=== PATIENT | male | born 1970 | race Caucasian/White ===

== ENCOUNTER 2018-04-22 13:36 | Emergency (ER) | payer OTHER ==
[~2018-04-22] VITALS: Ht 193 cm; Wt 160.0 kg
[~2018-04-22 13:36] MED LIST: COU7.5T PO; ENOX120D SQ; HYDR-565 PO; LOP25T PO; ONDA8TAB9 PO
[2018-04-22 13:58] LABS: BASOPHILS % (AUTO) 0.5 % (0-1); EOSINOPHILS # (AUTO) 0.3 X10'3 (0-0.9); EOSINOPHILS % (AUTO) 4.6 % (0-6); HEMATOCRIT 52.7 % (42.0-52.0); LYMPHOCYTES # (AUTO) 3.5 X10'3 (1.1-4.8); LYMPHOCYTES % (AUTO) 46.7 % (21-51); MEAN CORPUSCULAR HGB CONC 34.5 % (33.0-36.5); MEAN CORPUSCULAR VOLUME 101.5 FL (78-98); MEAN PLATELET VOLUME 7.7 FL (7.4-10.4); MONOCYTES # (AUTO) 0.5 X10'3 (0-0.9); MONOCYTES % (AUTO) 7.2 % (2-12); NEUTROPHILS # (AUTO) 3.1 X10'3 (1.8-7.7); PLATELET COUNT 187 X10'3 (140-440); RED BLOOD COUNT 5.19 X10'6 (4.70-6.10); RED CELL DISTRIBUTION WIDTH 13.6 % (11.5-14.5); WHITE BLOOD COUNT 7.4 X10'3 (4.5-11.0)
[2018-04-22 14:03] LABS: HEMOGLOBIN 18.2 g/dl (14.0-17.9)
[2018-04-22 14:08] LABS: PARTIAL THROMBOPLASTIN TIME 26 SECONDS (22-32); PROTHROMBIN TIME 10.2 SECONDS (9.0-12.0)
[2018-04-22 14:13] LABS: ALANINE AMINOTRANSFERASE 33 U/L (12-78); ALBUMIN 3.4 G/DL (3.4-5.0); ALBUMIN/GLOBULIN RATIO 0.9 (1.1-1.5); ALKALINE PHOSPHATASE 76 IU/L (46-116); ANION GAP 12 (8-16); ASPARTATE AMINO TRANSFERASE 23 U/L (10-37); BILIRUBIN,TOTAL 0.4 MG/DL (0.1-1.0); BLOOD UREA NITROGEN 6 MG/DL (7-18); BUN/CREATININE RATIO 9.2 (5.4-32.0); CALCIUM 8.2 MG/DL (8.5-10.1); CHLORIDE 106 MMOL/L (99-107); CREATININE 0.65 MG/DL (0.60-1.10); GLUCOSE 157 MG/DL (70-104); POTASSIUM 3.5 MMOL/L (3.5-5.1); SODIUM 142 MMOL/L (135-145); TOTAL CARBON DIOXIDE 23.8 MMOL/L (24-32); TOTAL PROTEIN 7.2 G/DL (6.4-8.2); eGFR > 90 ML/MIN
[2018-04-22] MEDS ORDERED: HYDROcodone/acetaminophen 5mg/325mg tablet PO ONE (14:50)
[2018-04-22] MEDS ORDERED: orphenadrine citrate 60mg/2ml inj. IM ONE (15:25)
[2018-04-22 15:42] VITALS: BP 131/65
== END 2018-04-22 18:18 | disposition home or self-care (01) ==
LOC: ER 13:36
DX: M79.604 Pain in right leg (principal); M79.89 Other specified soft tissue disorders; I10 Essential (primary) hypertension; Z86.718 Personal history of other venous thrombosis and embolism; Z86.14 Personal history of Methicillin resistant Staphylococcus aureus infection; Z79.01 Long term (current) use of anticoagulants; Z79.899 Other long term (current) drug therapy
CPT/HCPCS: 36415; 71045; 80053; 84484; 85025; 85610; 85730; 93971; 96372; 99285; J2360; 93005

== ENCOUNTER 2018-08-05 18:39 | Emergency (ER) | payer OTHER ==
[~2018-08-05] VITALS: Ht 190.5 cm; Wt 161.0 kg
[~2018-08-05 18:39] MED LIST changes: +HYDR-4353 PO; -HYDR-565 PO
[2018-08-05 19:39] LABS: BASOPHILS % (AUTO) 0.4 % (0-1); EOSINOPHILS # (AUTO) 0.1 X10'3 (0-0.9); EOSINOPHILS % (AUTO) 1.3 % (0-6); HEMATOCRIT 51.2 % (42.0-52.0); HEMOGLOBIN 17.2 g/dl (14.0-17.9); LYMPHOCYTES # (AUTO) 3.8 X10'3 (1.1-4.8); LYMPHOCYTES % (AUTO) 32.9 % (21-51); MEAN CORPUSCULAR HEMOGLOBIN 33.4 PG (27.0-31.0); MEAN CORPUSCULAR HGB CONC 33.5 % (33.0-36.5); MEAN CORPUSCULAR VOLUME 99.6 FL (78-98); MEAN PLATELET VOLUME 7.8 FL (7.4-10.4); MONOCYTES % (AUTO) 8.9 % (2-12); NEUTROPHILS # (AUTO) 6.6 X10'3 (1.8-7.7); NEUTROPHILS % (AUTO) 56.5 % (42-75); PLATELET COUNT 293 X10'3 (140-440); RED BLOOD COUNT 5.14 X10'6 (4.70-6.10); RED CELL DISTRIBUTION WIDTH 12.7 % (11.5-14.5); WHITE BLOOD COUNT 11.6 X10'3 (4.5-11.0)
[2018-08-05] MEDS ORDERED: iohexol 350MG/ML 100ml bottle IV ONE (19:45)
[2018-08-05 19:52] LABS: PROTHROMBIN TIME 10.4 SECONDS (9.0-12.0)
[2018-08-05 19:53] LABS: PARTIAL THROMBOPLASTIN TIME 29 SECONDS (22-32)
[2018-08-05 19:55] LABS: ALANINE AMINOTRANSFERASE 31 U/L (12-78); ALBUMIN 3.6 G/DL (3.4-5.0); ALBUMIN/GLOBULIN RATIO 0.7 (1.1-1.5); ALKALINE PHOSPHATASE 80 IU/L (46-116); ANION GAP 14 (8-16); ASPARTATE AMINO TRANSFERASE 19 U/L (10-37); BILIRUBIN,TOTAL 0.7 MG/DL (0.1-1.0); BLOOD UREA NITROGEN 11 MG/DL (7-18); BUN/CREATININE RATIO 12.4 (5.4-32.0); CALCIUM 8.8 MG/DL (8.5-10.1); CHLORIDE 102 MMOL/L (99-107); CREATININE 0.89 MG/DL (0.60-1.10); GLUCOSE 98 MG/DL (70-104); POTASSIUM 3.7 MMOL/L (3.5-5.1); SODIUM 139 MMOL/L (135-145); TOTAL CARBON DIOXIDE 23.2 MMOL/L (24-32); TOTAL PROTEIN 8.7 G/DL (6.4-8.2); eGFR > 90 ML/MIN
[2018-08-05] MEDS ORDERED: HYDROcodone/acetaminophen 5mg/325mg tablet PO ONE (20:45)
[2018-08-05] MEDS ORDERED: HYDR-3965 PO (21:41)
[2018-08-05 21:57] VITALS: BP 139/87
== END 2018-08-05 22:01 | disposition home or self-care (01) ==
LOC: ER 18:40
DX: I80.01 Phlebitis and thrombophlebitis of superficial vessels of right lower extremity (principal); R06.02 Shortness of breath; I10 Essential (primary) hypertension; Z79.02 Long term (current) use of antithrombotics/antiplatelets; Z86.718 Personal history of other venous thrombosis and embolism
CPT/HCPCS: 36415; 71045; 71275; 80053; 84484; 85025; 85610; 85730; 93005; 93971; 99284; Q9967

== ENCOUNTER 2025-04-24 17:05 | Inpatient (IN) | payer MEDICAID ==
[~2025-04-24] VITALS: Ht 190.5 cm; Wt 177.8 kg
--- NOTE | 2025-04-24 17:21 | ELECTROCARDIOGRAPH REPORT ---
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
--- NOTE | 2025-04-24 17:32 | Physician Documentation ---
History of Present Illness ~ Chief Complaint: Shortness of Breath Stated Complaint: SOB Time Seen by MD: 18:40 Primary Medical Doctor: NONE HPI This is a 55-year-old male with a history of DVT and PE who presents with two weeks of progressively worsening dyspnea on exertion and shortness of breath at rest, patient reports no chest pain or new lower extremity edema. Patient reports that he has been having episodes of lightheadedness and experienced an episode of syncope yesterday. Patient reports no aggravating or associated factors with episodes of lightheadedness reporting they just come out of no where. Patient additionally reports painful mass to his left inner thigh that he suspects to be an abscess. Medication Reconciliation Allergies: Coded Allergies: No Known Allergies (Unverified , 04/24/25) Scheduled Apixaban (Eliquis), 5 MG PO BID, (Reported) Furosemide (Furosemide), 1 TAB PO DAILY, (Reported) Potassium Chloride 8 MEQ* (Slow-K 8 Meq*), 1 CAP PO DAILY, (Reported) Discontinued Medications Enoxaparin Sodium (Lovenox), 120 MG SQ BID Discontinued Reason: completed med therapy Hydrocodone Bit/Acetaminophen ([place] 10-325 Tablet), 1 TAB PO Q6H Discontinued Reason: completed med therapy Metoprolol Tartrate* (Lopressor*), 25 MG PO BID Discontinued Reason: completed med therapy Ondansetron (Zofran Odt), 1 TABLET PO Q8H Discontinued Reason: completed med therapy Warfarin Sodium* (Coumadin*), 15 MG PO DAILY, (Reported) Discontinued Reason: completed med therapy Past Medical History Past Medical History: Hypertension, Pulmonary Embolism, Diverticulosis, Deep Vein Thrombosis, MRSA Abscess Past Surgical History: other Alcohol Use: None Drug Use: none Lives In: Home Occupation: employed Review of Systems ROS As stated above in the HPI, otherwise all systems are reviewed and negative. Physical Exam Vital Signs: Temperature: 96.7, Source: Temporal, Heart Rate: 108, Respiratory Rate: 22, BP: 159/99, Pulse Oximetry: 97, Weight: 182.900 Oxygen Flow Rate: 0 Physical Exam VITALS: Reviewed and as above. GENERAL: Alert, nontoxic appearing HEENT: RESPIRATORY: Mildly increased work of breathing, short of breath appearing, speaking in short clear sentences CHEST: CV: BACK: GI: MUSCULOSKELETAL: SKIN: NEURO: PSYCH: Progress Results/Orders Results/Orders Orders - FRITZ LAWTON MD Cta Chest Ct Abd Pelvis (04/24/25 19:46) Culture Blood (04/24/25 20:36) Page Hospitalist (04/24/25 23:53) Fill Out Med Reconciliation (04/24/25 23:53) Completed Orders - FRITZ LAWTON MD Cta Chest Ct Abd Pelvis (04/24/25 19:46) Iohexol 350mg/Ml 100ml (Omnipaque 350mg/ (04/24/25 19:32) Piperacillin/Tazo 3.375gm/50ml (Zosyn 3. (04/24/25 20:40) Lacticsepsis (04/24/25 20:36) Procalcitonin (04/24/25 20:37) Vancomycin/Ns 1 Gm Add-[place] (Vancomyc (04/24/25 20:43) Furosemide Inj (Lasix Inj) (04/24/25 23:55) Medications Received in ER Medications (Trade) Dose Ordered Sig/Kendy Route PRN Reason Start Time Stop Time Status Last Admin Dose Admin Piperacillin/ Tazobactam/ Dextrose 50 ml @ 100 mls/hr ONCE ONCE IV 04/24/25 20:40 04/24/25 21:09 DC 04/24/25 20:53 100 MLS/HR Vancomycin HCl 250 ml @ 166 mls/hr ONCE STAT IV 04/24/25 20:43 04/24/25 22:06 DC 04/24/25 21:54 166 MLS/HR (Lasix inj) 40 mg ONCE ONCE IV 04/24/25 23:55 04/24/25 23:56 DC 04/25/25 00:08 40 MG Vital Signs 04/24/25 04/24/25 04/24/25 04/24/25 17:08 19:14 19:15 21:09 Temp 96.7 Pulse 108 109 101 Resp 22 16 16 16 B/P (MAP) 159/99 137/96 (110) 116/77 (90) Pulse Ox 97 90 95 O2 Flow Rate 0 0 0 04/24/25 23:08 Pulse 99 Resp 16 B/P (MAP) 132/83 (99) Pulse Ox 93 O2 Flow Rate 0 Laboratory Tests Test 04/24/25 17:42 04/24/25 19:57 04/24/25 20:48 White Blood Count 12.0 H Red Blood Count 4.62 L Hemoglobin 14.9 Hematocrit 44.6 Mean Corpuscular Volume 96.6 Mean Corpuscular Hemoglobin 32.4 H Mean Corpuscular Hemoglobin Concent 33.5 Red Cell Distribution Width 14.7 H Platelet Count 148 Mean Platelet Volume 9.1 Neutrophils (%) (Auto) 74.3 Lymphocytes (%) (Auto) 17.4 L Monocytes (%) (Auto) 7.7 Eosinophils (%) (Auto) 0.4 Basophils (%) (Auto) 0.2 Neutrophils # (Auto) 8.9 H Lymphocytes # (Auto) 2.1 Monocytes # (Auto) 0.9 Eosinophils # (Auto) 0.1 Basophils # (Auto) 0.0 CBC Comment Sodium Level 139 Potassium Level 4.2 Chloride Level 105 Carbon Dioxide Level 25.6 Anion Gap 8 Blood Urea Nitrogen 16 Creatinine 0.86 Estimated GFR/1.73 m2 > 90 BUN/Creatinine Ratio 18.6 Glucose Level 123 H Lactic Acid Level 1.7 Calcium Level 8.8 Troponin I High Sensitivity 89 *H 78 *H 84 *H Pro-B-Type Natriuretic Peptide 1773 H Albumin 3.4 Chemistry Comments Troponin I High Sens Percent Delta 12 7 Troponin I Hi Sens Absolute Change -11 6 Procalcitonin < 0.05 Microbiology Date/Time Source Procedure Growth Status 04/24/25 20:56 Blood Hand Left Blood Culture - Preliminary NEGATIVE (LESS THAN 24 HOURS) Resulted Medical Decision Making Findings Patient presents to the emergency room with shortness of breaths and scrotal pain as per HPI. Differentials include but are not limited to infectious process, CHF, viral syndrome, pneumonia therefore emergent labs and imaging indicated. Workup consistent with new onset CHF. Patient does have cellulitis in his groin area however no gas and he had not suspect Zoila's gangrene. No actual abscess is seen on imaging. IV antibiotics initiated. No elevation of white blood cell count. That has concern for possible pulmonary embolism therefore CTA performed which was negative for pulmonary embolism. Departure Admitted to Inpatient Unit: yes, to hospitalist Impression: Primary Impression: New onset of congestive heart failure Additional Impression: Cellulitis Condition: Guarded Referrals: NO PRIMARY CARE PROVIDER (PCP) Signature Scribe Signature: No scribe Attestation: The note accurately reflects work and decisions made by me.Fritz Lawton MD 04/24/25 23:52 ANNETTE LOZANO [facility] Apr 24, 2025 17:32 FRITZ LAWTON MD Apr 24, 2025 23:53
--- NOTE | 2025-04-24 17:37 | RADIOLOGY REPORT ---
CHEST RADIOGRAPH REASON FOR EXAM: Chest pain COMPARISON: None TECHNIQUE: One view of the chest is provided FINDINGS: The cardiomediastinal silhouette is mildly enlarged. There is mild bilateral increased inte rstitial and airspace opacity. There is no large pleural effusion. There is no pneumothorax. No acute osseous abnormality is identified. IMPRESSION: Mild cardiomegaly. Mild bilateral increased interstitial and airspace opacity suggestive of pulmonar y edema. Diffuse pneumonitis is not ruled out. Correlate clinically and with physical exam.
[2025-04-24 18:17] LABS: MEAN PLATELET VOLUME 9.1 FL (7.4-10.4); RED CELL DISTRIBUTION WIDTH 14.7 % (11.5-14.5)
[2025-04-24 18:35] LABS: CREATININE 0.86 MG/DL (0.60-1.10); PRO BRAIN NATRIURETIC PEPTIDE 1773 PG/ML (0-125); TOTAL CARBON DIOXIDE 25.6 MMOL/L (24-32); eCRCL 116 ML/MIN; eGFR > 90 ML/MIN
[2025-04-24] MEDS ORDERED: APIX5TAB3 PO (19:13)
[2025-04-24] MEDS ORDERED: FURO20TA4 PO (19:13)
[2025-04-24] MEDS ORDERED: POTA8CAP20 PO (19:13)
[2025-04-24] MEDS ORDERED: vancomycin inj 1,000 MG in normal saline 250ml IV soln 250 ML IV STA (20:36)
[2025-04-24] MEDS: piperacillin/tazo 3.375gm/50ml 50 ML IV ONE (20:53)
[2025-04-24] MEDS: vancomycin/NS 1 GM ADD-VANTAGE 250 ML IV STA (21:54)
--- NOTE | 2025-04-24 23:39 | RADIOLOGY REPORT ---
CT ANGIOGRAM CHEST WITH CONTRAST FOR PULMONARY EMBOLUS CT OF THE ABDOMEN AND PELVIS WITH CONTRAST CLINICAL HISTORY: groin mass, SOB TECHNIQUE: Helical axial scans were obtained from the lung apices to below the dome of the diaphragm during dynamic intravenous injection of of iodinated nonionic contrast. Axial postcontrast scans of the abdomen and pelvis also obtained. Multiplanar reconstructions were obtained through the chest in lung and mediastinal windows, and coronal and sagittal reformatted images generated. Post processing MIP images were performed by the technologist on the CT scanner under supervision of a radiologist. O ne or more of the following radiation dose reduction techniques were used for this examination: autom ated exposure control, adjustment of the mA and/or kV according to patient size, use of iterative rec onstruction technique. COMPARISON: None FINDINGS: CHEST: Pulmonary arteries: Enhancement of the pulmonary arterial system to the proximal segmental levels. No discrete filling defects to suggest pulmonary embolism identified at this time. Mediastinum: Heart is enlarged. Coronary artery calcifications. No pericardial effusion. Scattered e nlarged mediastinal lymph nodes. Aortic atherosclerotic calcifications. Lung parenchyma: No dominant consolidation. Mild diffuse interlobular septal thickening. Pleura: No sizable pleural effusion or pneumothorax. Chest wall and axillae: No axillary adenopathy noted. ABDOMEN AND PELVIS: Liver: Nodular contour suggesting cirrhosis. No discrete Hepatic lesions as visualized. Gallbladder and biliary system: Large dependent gallstone is noted measuring approximately 2 cm in di ameter. No other CT evidence of cholecystitis at this time. No biliary ductal dilatation noted. Pancreas: Negative. Spleen: Negative. Adrenal Glands: Negative. Kidneys and collecting system: No hydroureteronephrosis. Nonspecific bilateral perinephric stranding . Small cortical cystic hypodensity arising from the lower pole is indeterminate. Retroperitoneum: Aortoiliac atherosclerotic changes. No evidence of abdominal aortic aneurysm. Lymph nodes: Enlarged bilateral external iliac chain lymph nodes. Multiple mildly enlarged left ingui nal lymph nodes also partially imaged. Bowel: No evidence of small-bowel obstruction. Normal caliber appendix. Descending and sigmoid colon diverticulosis. Thickening of the proximal sigmoid colon. No pericolonic fluid collections identified at this time. No free intraperitoneal air. Pelvis: Mild thickening versus underdistention of the urinary bladder. No sizable bladder calculus. S ubcutaneous edema imaged in the left inguinal scrotal soft tissues. Bilateral scrotal hydrocele parti ally imaged as well. Osseous structures: No destructive osseous lesions identified. Degenerative changes of the lower thor acic and lower lumbar spine. IMPRESSION: No definite evidence of pulmonary embolism. Cardiomegaly with mild pulmonary vascular congestion / interstitial edema. Nonspecific mediastinal adenopathy which may be reactive. Cirrhotic morphology of the liver. Cholelithiasis. Nonspecific perinephric fat stranding along with thickening versus underdistention of the urinary pushpa dder. Correlate for possible UTI / cystitis. Colonic diverticulosis with a region of thickening involving the proximal sigmoid colon. This may ref lect sequelae of chronic diverticular disease or early/mild colitis or diverticulitis. Recommend fol low-up to resolution to exclude any underlying lesion. Left inguinal adenopathy and enlarged bilateral external iliac chain lymph nodes may be reactive as w ell. Extensive subcutaneous edema in the left inguinal scrotal soft tissues which may be sequelae of cellulitis. As imaged, a discrete, sizable mass lesion is not identified at this time. Scrotal edema and presumed bilateral hydrocele partially imaged as well. Scrotal ultrasound may be o btained to further evaluate.
[2025-04-25] VITALS (12 sets, daily range): BP systolic 98–134; BP diastolic 71–88; PULSE 47–95; RESP 17–22; TEMP 96.8–98.4; O2SAT 93–98
[2025-04-25] MEDS: furosemide 10 MG/1 ML 10ml inj IV ONE (00:08)
[2025-04-25] MEDS ORDERED: magnesium sulf-water 4G/100mL 100 ML IV PRN (00:50)
[2025-04-25] MEDS ORDERED: magnesium Cl slow-release 64mg tablet PO PRN (00:50)
[2025-04-25] MEDS ORDERED: magnesium hydroxide 30ml (MOM) UD suspension PO PRN (00:50)
[2025-04-25] MEDS ORDERED: ondansetron/PF 4mg/2ml inj IV PRN (00:50)
[2025-04-25] MEDS ORDERED: potassium Cl 20 mEq SR tablet PO PRN ×2 (00:50)
[2025-04-25] MEDS ORDERED: potassium Cl 40MEQ/1/2NS 520ml 520 ML IV PRN (00:50)
[2025-04-25] MEDS ORDERED: mag hydrox/Alum hydrox/simeth 30ml oral suspension PO PRN (00:50)
[2025-04-25] MEDS ORDERED: magnesium sulf-water 2g/50mL 50 ML IV PRN (00:50)
[2025-04-25] MEDS: PERFLUTREN PROTEIN-A MICROSPHR (Optison) 0.22 MG/ML 3ML VIAL IV ONE (01:03)
[2025-04-25 01:20] LABS: INR 1.2 INR
[2025-04-25 01:23] LABS: CREATININE 1.05 MG/DL (0.60-1.10); TOTAL CARBON DIOXIDE 23.2 MMOL/L (24-32); eCRCL 95 ML/MIN; eGFR 73 ML/MIN
[2025-04-25 01:54] LABS: LEUKOCYTE ESTERASE ,URINE NEGATIVE (Neg); NITRITES, URINE NEGATIVE (Neg); OCCULT BLOOD,URINE TRACE-INTACT (Neg)
[2025-04-25 01:56] LABS: UA COLLECTION TYPE VOIDED
[2025-04-25 02:07] LABS: MUCUS STRANDS FEW /LPF (Neg); SQUAMOUS EPITHELIAL CELL,UR MODERATE /LPF (FEW)
[2025-04-25 02:14] LABS: URINE AMPHETAMINE SCREEN NEGATIVE (Neg); URINE BARBITUATE SCREEN NEGATIVE (Neg); URINE BENZODIAZEPINES SCREEN NEGATIVE (Neg); URINE CANNABINOID SCREEN NEGATIVE (Neg); URINE COCAINE SCREEN NEGATIVE (Neg); URINE METHADONE SCREEN NEGATIVE (Neg); URINE OPIATE SCREEN NEGATIVE (Neg); URINE PHENCYCLIDINE SCREEN NEGATIVE (Neg)
--- NOTE | 2025-04-25 02:34 | HISTORY AND PHYSICAL-Residence ---
History & Physical Providers to CC Resident Creating Document: IRMA CRABTREE, RES ~ History of Present Illness Primary Medical Doctor: [facility] Reason for Admit\Complaint: Scrotal cellulitis History of Present Illness The patient is a 55-year-old male with past medical history of multiple PEs and DVTs, liver cirrhosis, COPD, sleep apnea, who presented to the ED with complaints of significant scrotal swelling that started this morning. He was apparently asymptomatic yesterday and woke up today with swelling in his scrotum that is tender to touch. He is also unable to urinate standing and has sit on the commode. History of MRSA in scrotum for which he underwent a surgical procedure around 2 years ago. Patient also complains of shortness of breath that has been worsening since the last 2 and half weeks. Reports orthopnea and PND. Unable to even walk around the house. Not associated with cough, fever. Associated with chest tightness and palpitations. Patient not established with a steel heater and has no cardiac conditions except for possible sleep apnea and COPD. Patient reports dizziness on standing which is associated with spinning sensation, and rapid eye movements when he tries to focus on an object. Also associated with nausea during those episodes. Does not occur when he is sitting. These episodes have progressively worsened since last two weeks. Used to occur once a day, now occurring twice a day. He also lost consciousness twice, each lasting 30 seconds. Had post episode confusion for about 10 minutes and also associated with perioral numbness. History of multiple PEs and DVTs for which he is on Eliquis 5 mg b.i.d. Patient compliant with medication. Allergies: Coded Allergies: No Known Allergies (Unverified , 04/24/25) Home Medications Home Medications Active Reported Slow-K 8 Meq* (Potassium Chloride) 8 Meq Capsule.sa 1 Cap PO DAILY Furosemide 20 Mg Tablet 1 Tab PO DAILY Eliquis (Apixaban) 5 Mg Tablet 5 Mg PO BID Past Medical History Past Medical History Sleep apnea COPD Alcoholic liver cirrhosis Nicotine use disorder Diverticulosis 3 DVTs in right lower extremity 1 DVT in left upper extremity 2 PEs History of MRSA scrotum Past Surgical History Surgical History Comment Surgical procedure for MRSA in scrotum 2 years ago Past Social History Social History Comment 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 Ambulates independently without assistance. [facility] Does not follow up with other specialists. Substance use history: Smokes around 1 pack of cigarettes every two days. Has been smoking since he was 19 years old. Used to be a heavy alcoholic. Quit. Last drink was 3 years ago. Denies other illicit drug abuse. Smoking: Cigarettes, Less than 1 pack/day Alcohol Use: None Drug Use: None Lives In: Home Occupation: employed ROS ROS Constitutional: No fever, reports dizziness and weakness. no change in appetite/weight HEENT: No blurring of the vision, No sore throat, epistaxis Cardiovascular: Reports chest discomfort, palpitations during SOB, no syncope. Respiratory: Reports sob, no cough, hemoptysis Gastrointestinal: No abdominal pain, reports nausea during dizziness episodes, no vomiting. No diarrhea, constipation, melena. Genitourinary: No frquency, urgency, incontinence, nocturia. No dysuria, hematuria Musculoskeletal: No arthralgia, myalgia Endocrine: No fatigue, polydipsia, polyuria. No heat or cold intolerance Neurologic: No headache, vertigo. No weakness, numbness or tingling of extremities Psychiatric: No hallucinations/delusions, no anhedonia, no suicidal ideation Hematologic: No bleeding or bruises Exam Vitals: Vital Signs Date Time Temp Pulse Resp B/P (MAP) Pulse Ox O2 Delivery O2 Flow Rate FiO2 04/25/25 01:44 104 16 108/72 (84) 98 0 04/24/25 17:08 96.7 General: Adult male, morbidly obese, alert and oriented, not in acute distress Head: Normocephalic with an atraumatic Eyes: Pupils- 3mm, reacting to light, conjunctiva- anicteric Nose and throat: No polyps, septum- normal, no mucosal ulcers Neck: Supple, no lymphadenopathy, no carotid bruit Respiratory: No use of accessory muscles of respiration, Bilateral coarse breath sounds heard. Cardiac: S1-S2 heard, rhythm regular, no gallop/murmur Abdomen: non distended, no tenderness, no organomegaly, bowel sounds - heard Extremities: no clubbing, bilateral lower extremity chronic venous congestion, no deformities Groin: Significant scrotal edema with erythema and tenderness, involuted penis Skin: warm and dry, no rash, no purpura Neuro: No focal deficit, gross cranial nerve exam - normal Diagnostic Data Last Recorded Lab Results: 04/24/25 1742 04/25/25 0102 Diagnostic Data: Laboratory Tests Test 04/25/25 01:02 Prothrombin Time 12.4 SECONDS (9.0-12.0) H INR International Normalized Ratio 1.2 INR Coagulation Comments Additional Plan A 55-year-old male with past medical history of multiple PEs, DVTs, diverticulosis, alcoholic liver cirrhosis, COPD, sleep apnea, presented to the ED with scrotal cellulitis, dizziness and shortness of breath. He is being admitted into the hospital for further evaluation and management. Plan: Sepsis Scrotal cellulitis H/o MRSA scrotum Mild leukocytosis 12.0. Normal procalcitonin and lactic acid. No elevated temperatures. CT abdomen and pelvis showed subcutaneous edema in the left inguinal scrotal soft tissues. Bilateral scrotal hydrocele. Patient received vancomycin and zosyn in the ER. Started the patient on IV vancomycin and IV zosyn. Follow up with the blood cultures. Wound care consulted. Follow up with testicular usg to rule out torsion. Dyspnea New onset heart failure with acute exacerbation, unknown EF Elevated PBNP 1773. X-ray chest shows mild cardiomegaly with pulmonary edema. Patient received 40 mg of Lasix IV in the ER. Started the patient on IV Lasix 40 mg b.i.d. Water restriction 1.5 L per day. Strict I&Os. Daily weights. Follow up with the echocardiogram. Consider consultation with Cardiology for new onset CHF. Type 2 [place] Likely secondary to CHF Troponins mildly elevated and stable. Likely secondary to CHF. Vertigo Possible BPPV Syncope possibly vestibular Patient has vertigo with changing positions, associated with nystagmus and nausea. Advise physical therapy for estephania maneuvers. Follow up with CT head, echocardiogram, USG carotids. Tele neuro consult. Sleep apnea Patient not on home CPAP. Advice sleep study in outpatient setting. COPD, not in acute exacerbation Ipratropium/albuterol nebulizations q.4h PRN. Alcoholic liver cirrhosis Liver failure, not in decompensation History of alcohol use disorder Not an active alcoholic. Lactulose 20 mg BID, titrate to two to three bowel movements per day. Follow up with ammonia. Nicotine use disorder Nicotine patches 21 mg TD daily. Diverticulosis H/o diverticulitis Patient does not complain of hematochezia. No abdominal pain. Continue outpatient follow up. 3 DVTs in right lower extremity 1 DVT in left upper extremity 2 PEs Continue home Eliquis 5 mg b.i.d. Morbid obesity, BMI 50.4 Diet modification and exercise recommended. Continue outpatient follow up. Code Status: Full code DVT Prophylaxis: Eliquis Analgesia/Sedation: [place] Lines/Tubes: PIV GI Prophylaxis: Protonix Nutrition: Heart healthy diet PT: Ordered for estephania maneuver Disposition: We will admit the patient into medical shine. Continue IV antibiotics, follow up with CT head, echocardiogram and carotid ultrasound. Physical therapy for Estephania maneuver. Follow up with blood cultures. Irma Crabtree MD Internal Medicine Resident PGY-2 Addendum I personally reviewed the chart, labs and imaging and reviewed the patient with the team. I agree with the assessment and plan as documented by the resident. Patient was seen through remote audio-visual assessment through HIPAA compliance setup. Date of Service: Apr 25, 2025 Billing Provider: CHRISTY GO MD, SOWMYA MANJARI, RES Apr 25, 2025 02:34 CHRISTY GO MD Apr 25, 2025 05:46
[2025-04-25] MEDS: HYDROcodone/acetaminophen 10/325mg tab PO PRN (03:12)
[2025-04-25] MEDS: vancomycin/NS 1 GM ADD-VANTAGE 250 ML X 1 DOSE IV ONE (03:59)
[2025-04-25] MEDS ORDERED: ipratropium/albuterol 3ml nebule NEB PRN (04:15)
[2025-04-25] MEDS: K and/or MAG REPLACEMENT MC SCH (08:00)
[2025-04-25] MEDS: lactulose 20gm/30ml cup PO SCH (08:00)
[2025-04-25] MEDS: docusate sod 100mg capsule PO SCH (08:12)
[2025-04-25] MEDS: furosemide 10 MG/1 ML 10ml inj IV SCH (08:15)
[2025-04-25] MEDS: pantoprazole 40mg Tablet.DR PO SCH (08:17)
[2025-04-25] MEDS: nicotine 21mg patch - 24 hr TD SCH (08:19)
[2025-04-25] MEDS: piperacillin/tazo 4.5gm/100ml 100 ML IV SCH (08:26)
--- NOTE | 2025-04-25 12:22 | RADIOLOGY REPORT ---
CT CT HEAD Indication: syncope EXAM DATE: 04/25/2025 12:01 PM COMPARISON: None TECHNIQUE: CT of the head without intravenous contrast. RADIATION DOSE: CTDIvol: 69 mGy, DLP: 1262 mGy*cm FINDINGS: There is no intracranial hemorrhage. There is no extra-axial fluid, mass, mass effect or midline shif t. The ventricles are midline and normal in size. Basilar cisterns are patent. Mild periventricular a nd subcortical white matter chronic microvascular ischemic changes. 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 The paranasal sinuses and mastoids are well-pneumatized. Imaged portion of the orbits are unremarkabl e. IMPRESSION: No intracranial hemorrhage or mass effect. 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 If there is concern for acute infarction recommen d MRI brain to evaluate.
[2025-04-25] MEDS ORDERED: aminophylline 250mg/10ml inj. IV PRN (13:00)
[2025-04-25] MEDS ORDERED: metoprolol tartrate 1mg/ml inj IV PRN (13:00)
[2025-04-25] MEDS: vancomycin/NS 1 GM ADD-VANTAGE 250 ML IV SCH (13:58)
[2025-04-25] MEDS: EMPAGLIFLOZIN 10 MG TABLET PO SCH (13:59)
[2025-04-25] MEDS: carvedilol 6.25mg tablet PO SCH (14:01)
--- NOTE | 2025-04-25 14:03 | RADIOLOGY REPORT ---
Indication: scrotal cellulitis, rule out torsion Technique: Real-time ultrasound images through the scrotum. Comparison: None Findings: Right testicle measures 5.3 x 3.9 x 3. cm. It has normal echogenicity and echotexture, with no focal solid or cystic mass. There is normal flow on color Doppler, with normal waveforms. The right epidid ymal head measures 3.3 cm, and has no focal masses. Large epididymal cysts measuringm 1.6 cm, 1.1 cm . Large right hydrocele. Left testicle measures 5.1 x 3.3 x 4 cm. It has normal echogenicity and echotexture, with no focal s olid or cystic mass. There is normal flow on color Doppler, with normal waveforms. The left epididyma l head measures 2.2 cm, and has no focal masses. Small left hydrocele. There is no hydrocele or varicocele on either side. Scrotal edema. Impression: Large right hydrocele. Small left hydrocele. Right epididymal cysts measuring up to 1.6 cm. Scrotal edema
[2025-04-25 14:06] LABS: CREATININE 0.95 MG/DL (0.60-1.10); eCRCL 103 ML/MIN; eGFR 82 ML/MIN
--- NOTE | 2025-04-25 18:35 | CARDIOLOGY REPORT ---
APPROVED REPORT EXAM: Comprehensive 2D, Doppler, and color-flow Echocardiogram. 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 200.4 cm/s AoV VTI 30.1 cm AO Peak GR. 16.1 mmHg AO Mean GR. 9 mmHg LVOT VTI 19.27 cm LVOT Peak Emigdio. 103.4 cm/s EZEQUIEL(VTI)/BSA 2.30 cm2/m2 EZEQUIEL (VTI) 2.30 cm2 TDI Lateral E' P. V7.22 cm/s Tricuspid Valve TR P. Velocity 116 cm/s RAP ESTIMATE 10 mmHg TR Peak Gr. 5 mmHg RVSP 15 mmHg LEFT VENTRICLE Left ventricle is moderately dilated with mild concentric hypertrophy. Overall systolic function is s everely decreased. LVEF is approximately 30-35%. RIGHT VENTRICLE Right ventricle appears mildly dilated with decreased function. ATRIA Left atrium is moderately dilated. AORTIC VALVE Trileaflet AV appears mildly sclerotic without stenosis. No insufficiency. MITRAL VALVE Mitral valve leaflets are mildly thickened with moderate posterior annular calcifcation. No stenosis. Trace regurgitation TRICUSPID VALVE Tricuspid valve is grossly normal in structure with trace regurgitation. PULMONIC VALVE Pulmonic valve is grossly normal in structure. GREAT VESSELS The aortic root is normal in size. The ascending aorta is normal in size. IVC is dilated and collapse s less than 50% with inspiration. PERICARDIUM Normal pericardium. No effusion. Other Information Study Quality: Poor due to body habitus Conclusion Left ventricle is moderately dilated with mild concentric hypertrophy. Overall systolic function is severely decreased. LVEF is approximately 30-35%. Right ventricle appears mildly dilated with decreased function. Left atrium is moderately dilated. Trileaflet AV appears mildly sclerotic without stenosis. No insufficiency. Mitral valve leaflets are mildly thickened with moderate posterior annular calcifcation. No stenosis . Trace regurgitation Tricuspid valve is grossly normal in structure with trace regurgitation. Normal pericardium. No effusion.
[2025-04-25] MEDS: VANCOMYCIN LEVEL IV ONE (19:30)
--- NOTE | 2025-04-25 20:02 | [facility] CONSULT REPORT ---
[facility] Procedure Note [facility] Procedure Note Consult [facility] Note # Demographics Consult Type: General Neurology Patient Location: Inpatient First Name: Jered Last Name: Bijan Date of : 1970 Age: 55 Gender: Male Facility: [facility] Time of Initial Page (): 04/25/2025 19:30 First Contact with Site (): 04/25/2025 19:30 # HPI History: 55yom with PE and DVTs o9n Eliquis 5mg BID, COPD, liver cirrhosis who p/w scrotal swelling and dizziness. He says dizziness started 2.5 weeks ago. He felt like his eyes were moving strangely. He says in the last 1.5 weeks he is now having these episodes 3-4x a day. He has also passed out once and had an episode where he was not able to speak. # Scores Time of exam and NIHSS (): 04/25/2025 20:00 Level of Consciousness 1a: [0] = Alert; keenly responsive LOC Questions 1b: [0] = Answers both questions correctly LOC Commands 1c: [0] = Performs both tasks correctly Best Gaze 2: [0] = Normal Visual 3: [0] = No visual loss Facial Palsy 4: [0] = Normal symmetrical movements Motor Arm Left 5a: [0] = No drift Motor Arm Right 5b: [0] = No drift Motor Leg Left 6a: [0] = No drift Motor Leg Right 6b: [0] = No drift Limb Ataxia 7: [0] = Absent Sensory 8: [0] = Normal Best Language 9: [0] = No aphasia Dysarthria 10: [0] = Normal Extinction and Inattention 11: [0] = No abnormality NIHSS Total: 0 # Assessment Impression: - Ischemic Stroke (Acute) # Plan Thrombolytic/Intervention: NOT IV Thrombolysis or IA Intervention candidate Thrombolytic Exclusion: > 4.5 hours Intraarterial Exclusion: - clinical exam not consistent with presence of large vessel occlusion (LVO), can reconsider if LVO found on vascular imaging Blood Pressure Management: Use labetolol 10-20mg IV PRN or nicardipine gtt to maintain BP parameters Imaging: (urgency: routine): - MRI Brain without contrast - MR Angiogram Neck with contrast - MR Angiogram Head without contrast Diagnostic Test: - echo with bubble study [place] Hallpike maneuver Cardiac workup for syncope Therapy/Evaluation: - PT/OT evaluation - speech/swallow consultation - NPO until swallow evaluation Medication: - anticoagulation with NOAC Trial with meclizine Other: - If patient has any neurological deterioration please call me back immediately - callback neurology if brain imaging reveals moderate to large cerebellar infarct - I have discussed my recommendations with the referring provider - would not pursue stroke work-up if MRI is negative Additional Recommendations: - Avoid dehydration and relative hypotension - Risk factor modification, including smoking cessation and alcohol moderation if appropriate - Monitor glucose and correct as needed - If cryptogenic non-lacunar stroke on MRI, obtain outpatient cardiac monitoring for a fib - Call back for neurological deterioration Disposition: admit # Logistics Attestation of consult completion: The patient is located at: [facility]. Facility staff participated in the visit. I performed this telemedicine visit from my offsite office utilizing interactive 2 way audio and visual telecommunication technology at the request of the onsite inpatient provider. Total time spent in telemedicine encounter: I spent 23 minutes reviewing clinical data and/or imaging, obtaining history, examining the patient, communicating with the onsite care team, and in preparation of this report. # Demographics First Name: Jered Last Name: Bijan Facility: [facility] Neuro Consult Order placed for: Yes SHANNON LAZARO MD Apr 25, 2025 20:02
[2025-04-26] VITALS (19 sets, daily range): BP systolic 91–182; BP diastolic 51–117; PULSE 45–92; RESP 16–20; TEMP 97.1–97.6; O2SAT 88–97
[2025-04-26 06:23] LABS: MEAN PLATELET VOLUME 9.1 FL (7.4-10.4); RED CELL DISTRIBUTION WIDTH 14.9 % (11.5-14.5)
[2025-04-26 06:48] LABS: CHOL/HDL RATIO 5.0 (0.00-4.99); CREATININE 0.95 MG/DL (0.60-1.10); LDL CHOLESTEROL 92 MG/DL (50-100); TOTAL CARBON DIOXIDE 26.1 MMOL/L (24-32); eCRCL 103 ML/MIN; eGFR 82 ML/MIN
[2025-04-26] MEDS: regadenoson 0.4mg/5ml syringe IV PRN (09:44)
--- NOTE | 2025-04-26 11:42 | RADIOLOGY REPORT ---
Procedure: NM NM ELI SCAN Exam Date: 04/26/2025 08:19 AM Reason for study/Clinical History: CAD Comparison Study: None Myocardial Perfusion Study with SPECT Technique: The patient received an intravenous injection of 7.8 mCi of technetium-99m sestamibi whil e at rest. After a short delay, SPECT tomographic images of the heart were obtained. The patient th en went to the stress lab where they received an intravenous infusion of 0.[address] andard protocol. 32.6 mCi of technetium-99m sestamibi was injected intravenously immediately after the start of the lexiscan infusion. Gated SPECT tomographic images of the heart were acquired and pr ocessed. Findings: Fixed inferior wall defect. Global hypokinesis. End diastolic volume: 211 mL End systolic volume: 143 mL The left ventricular ejection fraction is 32 %. (normal greater than 50%) Impression: Fixed inferior wall defect. Global hypokinesis. The left ventricular ejection fraction is 32 %.
[2025-04-26] MEDS: aspirin 81mg, enteric-coated 1 TAB TABLET.DR PO SCH (11:56)
[2025-04-26] MEDS: furosemide 10 MG/1 ML 10ml inj IV SCH (13:04)
--- NOTE | 2025-04-26 17:30 | CONSULTATION REPORT ---
History of Present Illness Providers to CC CC: RAVEN WHITAKER MD ~ Reason for Admit\Admit Dx: Cardiology consultation Refering MD: KANWAL History of Present Illness Patient presents secondary to scrotal edema, shortness for breath and dizziness. He has a history of two PEs in the past and three DVTs. He is compliant with Eliquis. Questionable history of sleep apnea. States last time he had a pulmonary embolism he was discharged home with a mask but sent it back when he was more stable. History of MRSA in the scrotum. Denies history of cirrhosis but does appreciate history of heavy alcohol use. Cardiology consultation was requested secondary to low LVEF. Patient states he has had intermittent dizziness and had two episodes of syncope last week where his eyes were going back and forth really fast and he lost consciousness. He felt like the room was spinning prior to this. EKG shows sinus rhythm with frequent PVCs and poor R-wave progression. He had a stress test that revealed a fixed inferior defect. NT proBNP elevated at 1773. Allergies: Coded Allergies: No Known Allergies (Unverified , 04/24/25) Home Medications Home Medications Active Reported Slow-K 8 Meq* (Potassium Chloride) 8 Meq Capsule.sa 1 Cap PO DAILY Furosemide 20 Mg Tablet 1 Tab PO DAILY Eliquis (Apixaban) 5 Mg Tablet 5 Mg PO BID Past Medical History Medical History Comment Questionable history of cirrhosis Pulmonary embolism and DVT Questionable history of sleep apnea MRSA in the scrotum Past Surgical History Surgical History Comment States he had an abscess drained Past Social History Social History Comment No current alcohol use. He has been sober for three years but history of heavy alcohol use in the past. Currently smokes about a half pack per day. Denies other recreational drug use. Lives with . Physical Exam Last Vital Signs Recorded: RN Vital Signs have been reviewed: Yes, Temperature: 97.6, Source: Oral, Heart Rate: 82, Respiratory Rate: 18, BP: 125/77, Pulse Oximetry: 97, Weight: 177.800 Physical Exam General: Awake, alert, oriented. No apparent distress Neck: Supple. Normal range of motion. No JVD Respiratory: Lungs are clear to auscultation bilaterally. No respiratory distress. Chest: Normal shape and size. No accessory muscle use. Cardiovascular: Regular rate and rhythm. S1-S2. No murmur, gallop, rub. Gastrointestinal: Abdomen is soft, large. Nontender to palpation. Bowel sounds present. Extremities: The right leg is larger than left which is baseline for him. There is no pitting edema. No cyanosis or clubbing. Neurologic: Alert and oriented x4. Nonfocal Psychiatric: Normal mood and affect. Skin: Normal color. Warm and dry. Review of Systems ROS Patient complains of shortness for breath, orthopnea, PND, dizziness with a couple episodes of syncope. Swelling of the scrotum. Otherwise, review of systems is negative. Results EKG EKG Sinus rhythm with frequent PVCs and poor R-wave progression Echocardiogram Echocardiogram Conclusion Left ventricle is moderately dilated with mild concentric hypertrophy. Overall systolic function is severely decreased. LVEF is approximately 30-35%. Right ventricle appears mildly dilated with decreased function. Left atrium is moderately dilated. Trileaflet AV appears mildly sclerotic without stenosis. No insufficiency. Mitral valve leaflets are mildly thickened with moderate posterior annular calcifcation. No stenosis. Trace regurgitation Tricuspid valve is grossly normal in structure with trace regurgitation. Normal pericardium. No effusion. Dictated by:MICHAELA WOODARD MD Dictation date and time:04/25/251834 Electronically Signed by: MICHAELA WOODARD MD Date and Time: 04/25/251834 Cardiac Stress Test Cardiac Stress Test Procedure: [facility] ELI SCAN Exam Date: 04/26/2025 08:19 AM Reason for study/Clinical History: CAD Comparison Study: None Myocardial Perfusion Study with SPECT Technique: The patient received an intravenous injection of 7.8 mCi of technetium-99m sestamibi while at rest. After a short delay, SPECT tomographic images of the heart were obtained. The patient then went to the stress lab where they received an intravenous infusion of 0.4 mg lexiscan utilizing standard protocol. 32.6 mCi of technetium-99m sestamibi was injected intravenously immediately after the start of the lexiscan infusion. Gated SPECT tomographic images of the heart were acquired and processed. Findings: Fixed inferior wall defect. Global hypokinesis. End diastolic volume: 211 mL End systolic volume: 143 mL The left ventricular ejection fraction is 32 %. (normal greater than 50%) Impression: Fixed inferior wall defect. Global hypokinesis. The left ventricular ejection fraction is 32 %. Electronically Signed by:CATIA GUEVARA MD Date & Time: 04/26/25 1142 Diagram Lab Result Diagram: 04/26/25 0535 04/26/25 0535 Assessment/Plan Additional Plan Patient presents secondary to shortness for breath, dizziness, lightheadedness and scrotal edema. The following is his problem list: Heart failure with reduced ejection fraction TTE with LV moderately dilated with mild LVH. LVEF 30-35%. RV mildly dilated with reduced function. ACC/AHA stage C. NYHA class 3-4 symptoms Stress test with fixed defect of the inferior wall --stop carvedilol given lower blood pressures. --start metoprolol succinate start with 25 mg daily and up titrate as needed --stop losartan and start Entresto --continue Jardiance --continue spironolactone --Lasix as needed for shortness for breath/edema. Strict intake and output recommended. --recommend LifeVest --outpatient follow-up recommended. 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 Premature ventricular contractions --recommend beta-tony as above Dizziness/syncope Secondary to cardiac versus neurologic etiologies --recommend referral for Cardiology for outpatient event monitor History of DVT/PE --continue Eliquis Scrotal edema/cellulitis --management per hospitalist Case discussed with Dr. Cookie Whitaker in agreement with above. Supervising MD Supervising Physician: DONNA Mace NP Apr 26, 2025 17:30
[2025-04-26] MEDS: metoprolol succinate 25mg (24-HOUR) SR. Tablet PO SCH (17:50)
--- NOTE | 2025-04-26 18:28 | PROGRESS NOTE- Residence ---
Progress Note - Resident Providers to CC Resident Creating Document: AIDAN ORANTES RES CC: KAT LLOYD MD ~ Antibiotic Timeout Antibiotic Ordered?: Yes Subjective Patient was examined at bedside. Patient underwent stress test today and was feeling fatigued. Patient's shortness of breaths is improved at rest. Patient states that during the stress test he had worsened shortness of breaths. Objective Vital Signs Date Time Temp Pulse Resp B/P (MAP) Pulse Ox O2 Delivery O2 Flow Rate FiO2 04/26/25 18:08 84 116/74 (88) 04/26/25 11:37 18 97 Room Air* 0 21 04/26/25 06:00 97.6 Result Diagram: 04/26/25 0535 04/26/25 0535 General: Morbidly obese middle-aged male, Alert, awake, oriented, not in acute distress HEENT: PERRLA, no icterus, pallor, lymphadenopathy, carotid bruit Respiratory system: Bilateral vesicular breath sounds heard, bilateral basal Creps present CVS: S1-S2 heard, no murmurs/rubs/gallop GI: Generalized diffuse distention of the abdomen, blackish discoloration around the baseline, Soft, nontender, no organomegaly, no guarding/rigidity, bowel sounds present Neuro: No focal neurological deficits present Genitourinary: Significant swelling redness erythema and tenderness of the scrotum with intertrigo rash (improving) Extremities: Increased swelling of the right leg, status dermatitis and blackish discoloration of the right leg Skin: Warm and dry, a circular sebaceous cyst present over the back. Coagulation Studies Laboratory Tests Test 04/25/25 01:02 04/25/25 13:32 Prothrombin Time 12.4 SECONDS (9.0-12.0) H INR International Normalized Ratio 1.2 INR Coagulation Comments D-Dimer 0.77 MG/L FEU (0-0.50) H D-Dimer Comment Assessment Assessment A 55-year-old male with past medical history of multiple PEs, DVTs, diverticulosis, alcoholic liver cirrhosis, COPD, sleep apnea, presented to the ED with scrotal cellulitis, dizziness and shortness of breath. He is admitted for the management and evaluation of heart failure with reduced ejection fraction, scrotal cellulitis and possible acute CVA. Plan Plan Scrotal cellulitis Sepsis, POA H/o MRSA scrotum WBC count and procalcitonin normal, Preliminary blood cultures negative Testicular ultrasound: Right moderate hydrocele and epididymal cysts Continue IV vancomycin and Zosyn Continue Wound care Intertrigo candidiasis Nystatin powder Fluconazole 200 mg p.o. b.i.d. for seven days New onset heart failure with reduced ejection fraction, EF: 30-35% Possible underlying CAD Echo: EF: 30-35 %, RVSP: 15 mmHg. Overall systolic function severely decreased Changed IV Lasix 40 mg to q.6h, titrate Lasix as Lexiscan: Global hypokinesis, fixed inferior wall defect. Cardiology recommended GDM T as per below, outpatient event monitor and outpatient follow up with Cardiology. Appreciate recommendations GDM T: Entresto, metoprolol 25 mg p.o. daily, Aldactone 25 mg daily, Jardiance 10 mg p.o. daily GDM aspirin 81 mg and atorvastatin 80 mg once daily Strict Is&Os, Water restriction 1.5 L per day, Strict I&Os, Daily weights. LifeVest Type 2 LA Likely secondary to CHF Troponins downtrending and normal Likely secondary to CHF. 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 Follow up with the MRI brain Trial of meclizine 25 mg TID has been ordered for Neurology recommendations. LDL: 92, LDL goal less than 70-started on atorvastatin 80 mg and aspirin 81 mg Orthostatic vitals negative COPD, not in acute exacerbation Duo nebs q.4h PRN. Alcoholic liver cirrhosis, not in decompensation History of alcohol use disorder Normal ammonia levels Lactulose 20 mg BID Continue IV Lasix 40 mg as per above. Continue Aldactone as per above Nicotine use disorder Nicotine patches 21 mg TD daily. Diverticulosis H/o diverticulitis Patient does not complain of hematochezia. No abdominal pain. Continue outpatient follow up. History of PE and DVTs Continue Eliquis 5 mg b.i.d. Morbid obesity, BMI 50.4 Underlying sleep apnea Outpatient follow up CPAP daily at night Code Status: Full code Anticoagulation: Eliquis, aspirin Nutrition: Heart healthy diet Disposition: Continue care in ortho floor, follow up with MRI brain Aidan Orantes MD Internal Medicine, PGY 1 Date of Service: Apr 26, 2025 Billing Provider: KAT LLOYD MD,AIDAN, RES Apr 26, 2025 18:28
[2025-04-26] MEDS: sacubitril/valsartan 24mg-26mg tablet PO SCH (19:49)
[2025-04-26] MEDS: VANCOmycin 1250MG/NS 250ml Bag 250 ML IV SCH (20:47)
[2025-04-27 02:48] VITALS: PULSE 77
[2025-04-27 05:57] LABS: CREATININE 1.05 MG/DL (0.60-1.10); MEAN PLATELET VOLUME 9.3 FL (7.4-10.4); RED CELL DISTRIBUTION WIDTH 14.3 % (11.5-14.5); TOTAL CARBON DIOXIDE 31.3 MMOL/L (24-32); eCRCL 95 ML/MIN; eGFR 73 ML/MIN
[2025-04-27 06:00] VITALS: BP 125/79; PULSE 52; RESP 19; TEMP 97.5; O2SAT 92
[2025-04-27 07:00] VITALS: O2SAT 92
[2025-04-27 07:59] VITALS: BP 96/75; PULSE 78
[2025-04-27 08:15] VITALS: PULSE 50; RESP 18; O2SAT 93
[2025-04-27 10:00] VITALS: BP 103/71; PULSE 75; RESP 20; TEMP 97.4; O2SAT 94
--- NOTE | 2025-04-27 10:53 | RADIOLOGY REPORT ---
CLINICAL INFORMATION: CVA. TECHNIQUE: Axial imaging was obtained through the brain without contrast. Coronal and sagittal reform atted images were obtained, reviewed, and stored. Images were reviewed in brain and bone windows. Al l CT scans at this medical facility are performed using dose modulation techniques as appropriate to a performed exam including the following: Automated exposure control was utilized; adjustment of the MA and/or KV according to patient size; and use of iterative reconstruction technique. CTDIvol = 69 m Gy DLP = 1332.93 mGy-cm COMPARISON: CT CT HEAD on DOS: 04/25/25 FINDINGS: There is no acute intracranial hemorrhage. No mass effect or midline shift. Chronic appeari ng lacunar infarct in the right basal ganglia, unchanged. Similar-appearing mild hypoattenuation in t he left subinsular region, may be sequelae of chronic ischemic change. The ventricles and sulci are w ithin normal limits in size for age. Basal cisterns are patent. The calvarium is unremarkable. Paran marquise sinuses and mastoid air cells are clear. IMPRESSION: 1. No CT evidence of acute intracranial abnormality. MRI could be obtained to further evaluate for ac damir infarct if clinically indicated. 2. Stable, nonacute appearing findings as described above.
[2025-04-27] MEDS ORDERED: SACU1TAB PO (12:35)
[2025-04-27] MEDS ORDERED: LACT-373 PO (12:35)
[2025-04-27] MEDS ORDERED: BUDE10.26 INH (12:35)
[2025-04-27] MEDS ORDERED: ATOR20TA66 PO (12:35)
[2025-04-27] MEDS ORDERED: AMOX-580 PO (12:35)
[2025-04-27] MEDS ORDERED: ALBU90AE INH (12:35)
[2025-04-27] MEDS ORDERED: ASPI-1071 PO (12:35)
[2025-04-27] MEDS ORDERED: METO-395 PO (12:35)
[2025-04-27] MEDS ORDERED: NYSPWD TP (12:35)
[2025-04-27] MEDS ORDERED: MECL-226 PO (12:35)
[2025-04-27] MEDS ORDERED: LINE600T14 PO (12:35)
[2025-04-27] MEDS ORDERED: EMPA10TA PO (12:35)
[2025-04-27] MEDS ORDERED: SPIR25TA PO (12:35)
[2025-04-27] MEDS ORDERED: FURO40TA4 PO (12:41)
[2025-04-27] MEDS ORDERED: LACT1CAP55 PO (12:46)
--- NOTE | 2025-04-27 14:51 | DISCHARGE SUMMARY-Residence ---
Discharge Summary Providers to CC Resident Creating Document: AIDAN ORANTES, CAMILLA CC: KAT LLOYD MD ~ Discharge Summary Admission Diagnosis: Scrotal cellulitis, New onset CHF Hospital Course DATE OF ADMISSION: 04/25/25 DATE OF DISCHARGE: 04/27/25 Discharge Diagnosis\Comment: Scrotal cellulitis Sepsis, POA History of MRSA scrotum Intertrigo candidiasis New onset HFrEF with possible underlying CAD Type 2 above likely secondary dysphagia possible BPPV versus history of prior CVA COPD not in acute exacerbation Alcoholic liver cirrhosis not in acute decompensation Alcohol use disorder Nicotine use disorder Diverticulosis with a history of Diverticulitis History of PEs and DVTs Morbid obesity Underlying sleep apnea Operations\Procedures: Sean Consultants: Dr. Whitaker (cardiology) Complications: None Condition on DC: Stable New Medications: Albuterol Sulfate (Proair Respiclick) 90 Mcg Aer.pow.ba 2 PUFFS INH Q4HPRN PRN for shortness of breath, #1 EA 0 Refills Amox Tr/Potassium Clavulanate 875/125 MG (Augmentin 875/125 MG) 875 Mg-125 Mg Tablet 1 TAB PO BID for 5 Days, #10 TAB Budesonide/Formoterol Fumarate (Budesonide-Formoterol 160-4.5) 160 Mcg-4.5 Mcg/Actuation Hfa.aer.ad 2 PUFFS INH Q12H for 30 Days, #10.2 GM 0 Refills L. Rhamnosus GG/Inulin (Culturelle Capsule) 10 Billion Cell-200 Mg Cap.sprink 1 CAP PO DAILY for 30 Days, #30 CAP 0 Refills Linezolid (Linezolid) 600 Mg Tablet 1 TAB PO Q12H for 5 Days, #10 TAB 0 Refills Aspirin (Ecotrin*) 81 Mg Tablet.dr 1 TAB PO DAILY for 30 Days, #30 TAB.SR Atorvastatin Calcium (Atorvastatin Calcium) 20 Mg Tablet 80 MG PO DAILY for 30 Days, #30 TAB Empagliflozin (Jardiance) 10 Mg Tablet 10 MG PO DAILY for 30 Days, #30 TAB Lactulose (Lactulose) 10 Gram/15 Ml Solution 20 GM PO BID for 30 Days, #1200 ML Meclizine HCl (Meclizine HCl) 12.5 Mg Tablet 25 MG PO TID PRN for dizziness/vertigo for 15 Days, #90 TAB Metoprolol Succinate (Metoprolol Succinate) 25 Mg Tab.sr.24h 25 MG PO DAILY for 30 Days, #30 TAB.SR Nystatin (NYSTOP powder) 100,000 Unit/Gram Gra 1 APPLIC TP TID for 30 Days, #2 BOTTLE Sacubitril/Valsartan (Entresto 24 mg-26 mg Tablet) 24 Mg-26 Mg Tablet 1 TABLET PO BID for 30 Days, #30 TAB Spironolactone (Aldactone) 25 Mg Tablet 25 MG PO DAILY@0830 for 30 Days, #30 TAB Changed Medications: Furosemide 40 MG (Lasix) 40 Mg Tablet 1 TAB PO Q6H for 30 Days, #120 TAB (Changed from: Furosemide 20 Mg Tablet 1 Tab PO DAILY) Continued Medications: Apixaban (Eliquis) 5 Mg Tablet 5 MG PO BID Potassium Chloride 8 MEQ* (Slow-K 8 Meq*) 8 Meq Capsule.sa 1 CAP PO DAILY Discharge Summary: A 55-year-old male patient with PMH of multiple PEs, DVTs, alcoholic liver cirrhosis presented to the ED with multiple complaints. Patient had erythema tenderness swelling of his scrotum, shortness of breaths that gradually worsened, orthopnea, PND and dizzy sensation with loss of consciousness for about two episodes; associated slurring of speech post LOC. Patient was evaluated for all the problems simultaneously. On further investigations and vital signs-patient was found to have scrotal cellulitis with imaging revealing right-sided moderate hydrocele-patient was started on IV antibiotics. In view of intertrigo candidiasis patient was started on fluconazole 100 mg p.o. b.i.d. for five days and also received nystatin powder. Testicular ultrasound was done to rule out any strangulation incarceration or torsion In view of gradual worsening of shortness of breaths patient was evaluated for heart failure and was found to have new onset heart failure with a reduced e jection fraction of 30-35%. In view of new onset of heart failure with reduced ejection fraction patient was evaluated for any possible underlying CAD with the help of Lexiscan which revealed global hypokinesia with inferior wall defect that is fixed. Consequently, Cardiology was consulted who recommended GDM T, outpatient event monitor and outpatient follow up. In view of EF less than 30% patient is advised and discharged with life vest. At the time of admission, patient had mild elevation of troponins indicating type 2 TX secondary to new onset heart failure with reduced ejection fraction CT head was done in view of dizziness, syncopal episodes in loss of consciousness with slurring of speech. CT head was found to have old basal ganglia and subinsular infarcts raising suspicion for possible new stroke. In view of patient's body composition he was not compatible with the MRI admission therefore a CT head was repeated at 48 hours which did not reveal any new significant findings. Additionally, patient also started to feel symptomatically better with a trial of meclizine 25 mg TID that was recommended by the neurologist on-call. Patient's other medical conditions like COPD which was not in exacerbation, alcoholic liver cirrhosis not in acute decompensation, alcohol and nicotine use disorder, multiple PEs and DVTs were managed per home medications. Patient is physically and clinically stable for discharge to home after clearance from PT. Physical examination at discharge: General: Morbidly obese middle-aged male, Alert, awake, oriented, not in acute distress HEENT: PERRLA, no icterus, pallor, lymphadenopathy, carotid bruit Respiratory system: Bilateral vesicular breath sounds heard, bilateral basal Creps present (improved significantly) CVS: S1-S2 heard, no murmurs/rubs/gallop GI: Generalized diffuse distention of the abdomen, blackish discoloration around the baseline, Soft, nontender, no organomegaly, no guarding/rigidity, bowel sounds present Neuro: No focal neurological deficits present Genitourinary: Significant swelling redness erythema and tenderness of the scrotum with intertrigo rash (improving) Extremities: Increased swelling of the right leg, status dermatitis and blackish discoloration of the right leg Skin: Warm and dry, a circular sebaceous cyst present over the back. Labs at discharge: WBC: 9.7, H/H: 40.6/43.2, platelet count: 143 Sodium: 139, potassium: 3.8, BUN: 16, creatinine: 1.05 Imaging: Head CT at 48 hours:Chronic appearing lacunar infarct in the right basal gangli a, unchanged. Similar-appearing mild hypoattenuation in the left subinsular region, may be sequelae of chronic ischemic change. HCT at the time of admission: Similar to the above. Lexiscan: Fixed inferior wall defect, global hypokinesis Echo: LV moderately dilated with mild concentric hypertrophy. 30-35% EF. RV appears mildly dilated. Testicular ultrasound: Large right hydrocele with epididymal cysts. Small left hydrocele Chest CTA: No definite evidence of pulmonary embolism. CXR: Mild bilateral increased interstitial and airspace opacity suggestive of pulmonary edema. Discharge medications can be found above patient is discharged home with the following recommendations: Follow up with your PCP with repeat CBC with differential and BMP within two weeks of discharge. Follow up with Dr. Whitaker (scaleman)-[address] [place] [id number], to follow up on heart failure and an event monitor per their recommendations in the hospital. Follow up with Neurology in view of old infarcts and vertigo. We started you on GDM T medications for heart failure like metoprolol, Entresto, Jardiance, spironolactone please maintain compliance Strict avoidance of alcohol, tobacco smoking, any other drugs recommended. We gave you inhalers for daily use and rescue for any episodes of wheezing and shortness of breaths. We will be sending you home on Lasix 40 mg every 6 hours, please downgrade the dose and frequency or upgrade based on your daily weights and symptoms. Do not take Lasix if your systolic blood pressure is less than 100 mmHg. We will send you home with LifeVest, use this to help in situations of sudden cardiac arrest especially with your ejection fraction being low. Please continue antibiotics as prescribed for the prescribed duration. In view of liver cirrhosis, it is very important for you to have regular bowel movements to prevent from elevation of ammonia and causing altered mental status. Therefore continue lactulose. Please continue to take your Eliquis, aspirin to prevent any embolic/strokes. Return to ER or call 911 in view of worsening shortness of breaths, chest pain, palpitations. *Problems/Diagnosis: (1) Acute HFrEF (heart failure with reduced ejection fraction) (2) Cellulitis of scrotum Total Time Spent on D/C: > 30 Minutes Date of Service: Apr 27, 2025 Billing Provider: KAT LLOYD MD, SIVA, RES Apr 27, 2025 14:39
[2025-04-28] MEDS ORDERED: VANCOMYCIN LEVEL IV ONE (11:30)
== END 2025-04-27 13:04 | disposition home or self-care (01) | DRG 720 ==
LOC: ER 17:06 → ED HOLD 04-25 00:51 → ORTHO 4S 04-25 02:15
PROVIDERS: ADMIT Internal Medicine Pulmonary Disease; ATTEND Family Medicine
PROC: B32T1ZZ Computerized Tomography (CT Scan) of Left Pulmonary Artery using Low Osmolar Contrast (ICD-10-PCS; 2025-04-24)
PROC: B3201ZZ Computerized Tomography (CT Scan) of Thoracic Aorta using Low Osmolar Contrast (ICD-10-PCS; 2025-04-24)
PROC: B32S1ZZ Computerized Tomography (CT Scan) of Right Pulmonary Artery using Low Osmolar Contrast (ICD-10-PCS; 2025-04-24)
PROC: 4A02XM4 Measurement of Cardiac Total Activity, External Approach (ICD-10-PCS; principal; 2025-04-26)
PROC: 3E033HZ Introduction of Radioactive Substance into Peripheral Vein, Percutaneous Approach (ICD-10-PCS; 2025-04-26)
DX: A41.9 Sepsis, unspecified organism (principal); I50.23 Acute on chronic systolic (congestive) heart failure; I21.A1 Myocardial infarction type 2; Z68.43 Body mass index [BMI] 50.0-59.9, adult; F17.210 Nicotine dependence, cigarettes, uncomplicated; K57.90 Diverticulosis of intestine, part unspecified, without perforation or abscess without bleeding; B37.2 Candidiasis of skin and nail; I49.3 Ventricular premature depolarization; N50.89 Other specified disorders of the male genital organs; K70.30 Alcoholic cirrhosis of liver without ascites; N49.2 Inflammatory disorders of scrotum; I11.0 Hypertensive heart disease with heart failure; E66.01 Morbid (severe) obesity due to excess calories; Z79.01 Long term (current) use of anticoagulants; Z86.711 Personal history of pulmonary embolism; Z86.718 Personal history of other venous thrombosis and embolism; Z79.899 Other long term (current) drug therapy
CPT/HCPCS: 36415; 70450; 71045; 71275; 74177; 76870; 78452; 80048; 80053; 80061; 80202; 80305; 81001; 82140; 82565; 83036; 83605; 83735; 83880; 84132; 84145; 84443; 84484; 85025; 85379; 85610; 87040; 87081; 93005; 93017; 93306; 93976; 94760; 96365; 97116; 97161; 97530; 99285; A4620; A6154; A6258; A9500; G0378; J1938; J2543; J2785; J3373; J3374; J7030; J7040; Q9967

== ENCOUNTER 2025-06-25 21:13 | Emergency (ER) | payer MEDICAID ==
[~2025-06-25] VITALS: Ht 190.5 cm; Wt 177.0 kg
[~2025-06-25 21:13] MED LIST changes: +ALBU90AE INH; +APIX5TAB3 PO; +ASPI-1071 PO; +ATOR20TA66 PO; +BUDE10.26 INH; -COU7.5T PO; +EMPA10TA PO; -ENOX120D SQ; -HYDR-4353 PO; +LACT-373 PO; +LACT1CAP55 PO; +LINE600T14 PO; -LOP25T PO; +MECL-226 PO; +METO-395 PO; +NYSPWD TP; -ONDA8TAB9 PO; +POTA8CAP20 PO; +SACU1TAB PO; +SPIR25TA PO
--- NOTE | 2025-06-25 21:20 | ELECTROCARDIOGRAPH REPORT ---
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
[2025-06-25 21:25] VITALS: BP 165/101; PULSE 107; O2SAT 97
[2025-06-25 21:28] VITALS: RESP 20
--- NOTE | 2025-06-25 21:31 | Physician Documentation ---
History of Present Illness ~ Chief Complaint: Chest Pain Stated Complaint: CP Time Seen by MD: 21:15 Primary Medical Doctor: KANWAL Source: patient Mode of Arrival: EMS Exam Limitations: no limitations HPI Mr. Thakkar is a 55 y/o male with PMHx significant for CAD s/p STEMI two months ago, HTN, HLD, CVT/PE on Eliquis, and Obesity who presents to the ED from home via EMS with c/o chest pain. He states that chest pain started earlier today and has been persistent. He describes it as a burning sensation but states "It feels just like when I had my heart attack two months ago." He has his follow- up appointment tomorrow with Cardiology and initially though he would be able to wait and just go to his appointment tomorrow, but the pain is became too significant and so he called 911. Medication Reconciliation Allergies: Coded Allergies: No Known Allergies (Unverified , 04/24/25) Scheduled Apixaban (Eliquis), 5 MG PO BID, (Reported) Aspirin (Ecotrin*), 1 TAB PO DAILY Atorvastatin Calcium (Atorvastatin Calcium), 80 MG PO DAILY Budesonide/Formoterol Fumarate (Budesonide-Formoterol 160-4.5), 2 PUFFS INH Q12H Empagliflozin (Jardiance), 10 MG PO DAILY L. Rhamnosus GG/Inulin (Culturelle Capsule), 1 CAP PO DAILY Lactulose (Lactulose), 20 GM PO BID Linezolid (Linezolid), 1 TAB PO Q12H Metoprolol Succinate (Metoprolol Succinate), 25 MG PO DAILY Nystatin (NYSTOP powder), 1 APPLIC TP TID Potassium Chloride 8 MEQ* (Slow-K 8 Meq*), 1 CAP PO DAILY, (Reported) Sacubitril/Valsartan (Entresto 24 mg-26 mg Tablet), 1 TABLET PO BID Spironolactone (Aldactone), 25 MG PO DAILY@0830 Scheduled PRN Albuterol Sulfate (Proair Respiclick), 2 PUFFS INH Q4HPRN PRN for shortness of breath Meclizine HCl (Meclizine HCl), 25 MG PO TID PRN for dizziness/vertigo Past Medical History Past Medical History: Hypertension, Pulmonary Embolism, Diverticulosis, Deep Vein Thrombosis, MRSA Abscess Past Surgical History: other Alcohol Use: None Drug Use: none Lives In: Home Occupation: employed Review of Systems All Other Systems at this time: Reviewed and Negative Physical Exam Vital Signs: RN Vital Signs have been reviewed: Yes, Temperature: 98.5, Heart Rate: 111, Respiratory Rate: 28, BP: 134/104, Pulse Oximetry: 95, Weight: 177.000 Oxygen Flow Rate: 2.0 Physical Exam GEN: Alert and oriented and in NAD. HEENT: NC/AT. PERRLA. No scleral icterus. MMM. No oral lesions. NECK: Supple. No JVD. CHEST: RRR. No M/G/T. LUNGS: CTA B. No W/R/R. ABD: Soft. NTND. + BS. No rebounding or guarding. BACK: No CVA TTP. EXT: No c/c/e. NEURO: Alert and oriented x 4. Cooperative. Sensorimotor intact x 4 extre mities. Progress Results/Orders Results/Orders Orders - DEMETRA WICK MD Chest,Single View (06/25/25 21:28) Monitor (06/25/25 21:15) Saline Lock (06/25/25 21:15) Oxygen (06/25/25 21:15) BMP (06/25/25 21:15) PBNP (06/25/25 21:15) Hs Troponin I W Calculations (06/25/25 21:15) Hs Troponin I W Calculations (06/25/25 23:15) Hs Troponin I W Calculations (06/26/25 00:15) Hs Troponin I W Calculations (06/25/25 21:16) MG (06/25/25 21:16) Completed Orders - DEMETRA WICK MD Chest,Single View (06/25/25 21:28) Cbc/Diff (06/25/25 21:15) Electrocardiogram (06/25/25 21:15) Vital Signs 06/25/25 06/25/25 06/25/25 21:17 21: 21:28 Temp 98.5 98.5 Pulse 111 107 Resp 28 24 20 B/P (MAP) 134/104 165/101 (122) Pulse Ox 95 97 O2 Flow Rate 2.0 2.0 Laboratory Tests Test 06/25/25 21:30 White Blood Count 8.9 Red Blood Count 5.37 Hemoglobin 17.3 Hematocrit 49.7 Mean Corpuscular Volume 92.6 Mean Corpuscular Hemoglobin 32.3 H Mean Corpuscular Hemoglobin Concent 34.9 Red Cell Distribution Width 13.4 Platelet Count 156 Mean Platelet Volume 9.0 Neutrophils (%) (Auto) 57.6 Lymphocytes (%) (Auto) 34.3 Monocytes (%) (Auto) 6.4 Eosinophils (%) (Auto) 1.3 Basophils (%) (Auto) 0.4 Neutrophils # (Auto) 5.1 Lymphocytes # (Auto) 3.1 Monocytes # (Auto) 0.6 Eosinophils # (Auto) 0.1 Basophils # (Auto) 0.0 CBC Comment Sodium Level 138 Potassium Level 3.7 Chloride Level 103 Carbon Dioxide Level 25.2 Anion Gap 10 Blood Urea Nitrogen 12 Creatinine 0.71 Estimated GFR/1.73 m2 > 90 BUN/Creatinine Ratio 16.9 Glucose Level 155 H Calcium Level 8.3 L Magnesium Level 2.0 Albumin 3.5 Chemistry Comments EKG/XRAY/CT/US/VASC/MRI EKG : Intepreting Monitor?: Yes EKG Rate: 117 Additional Comment Rate: 117 Rhythm: Sinus tachycardia Kenna: Normal Intervals: LBBB ST: Nonspecific ST-T wave changes Interpretation: Sinus tachycardia with Bigeminy. Heart Score: Heart Score Response (Comments) Value History Moderate Suspicious 1 EKG Repolarization Disturb 1 Age 45-64 1 Risk Factors >3 or Hx ASHD 2 Troponin 1-2 x's Normal limit 1 Total 6 Medical Decision Making Additional information obtaine: old records Findings While here in the ED, he remained hemodynanically normal with ABC's intact and in NAD. He is afebrile but appears uncomfortable. I reviewed his EKG and it shows sinus tachycardia with a rate of 117 and bigeminy. I reviewed his CXR and it is suggestive of pulmonary vascular congestion. While being worked up, he ripped out his IV and stated that he was leaving. He stated that he felt better and would just follow-up with his Soda Room Operator at 0800 tomorrow morning as previously scheduled. He signed out AMA. Given follow-up and return instructions. He voiced understanding and agreement with d/c instructions. Heart Score: 6 Differential Dx:Considerations: Include: angina, aortic dissection, CHF, costochondritis, esophageal reflux/spasm, myocardial infarction, pericarditis, pleuritis, pancreatitis, pneumonia, pneumothorax, pulmonary embolus Departure Disposition: LEFT AGAINST MEDICAL ADVICE Impression: Primary Impression: Chest pain Additional Impression: Chest pain at rest Condition: Stable Referrals: NO PRIMARY CARE PROVIDER (PCP) Comments Please follow-up with your Soda Room Operator tomorrow morning at 0800 as previously scheduled. Return to the Emergency Department if there are any additional concerns. Education Educated: Patient Educated regarding: diagnosis, treatment Critical Care Note Critical Care Note I have personally spent 41 minutes of critical care time, exclusive of time spent on any procedures, in evaluation and management of this critically ill patients condition of chest pain with concern for acute ACS. ACF Form Admit Criteria Met or Not Met: YES Signature Scribe Signature: N/A Attestation: N/A DEMETRA WICK MD Jun 25, 2025 21:31
--- NOTE | 2025-06-25 21:39 | RADIOLOGY REPORT ---
CLINICAL HISTORY: CP TECHNIQUE: Single view of the chest was obtained. COMPARISON: CT CTA CHEST CT ABD PELVIS W/ IV CONTRAST on DOS: 04/24/25, DI CHEST,SINGLE VIEW on DOS: 04/24/25 FINDINGS: The heart size is mildly enlarged pulmonary vascular congestion. There are patchy bilateral lung opacities. IMPRESSION: Pulmonary vascular congestion. Patchy bilateral lung opacities, favor pulmonary edema.
[2025-06-25 21:42] LABS: MEAN PLATELET VOLUME 9.0 FL (7.4-10.4); RED CELL DISTRIBUTION WIDTH 13.4 % (11.5-14.5)
[2025-06-25 21:58] LABS: CREATININE 0.71 MG/DL (0.60-1.10); TOTAL CARBON DIOXIDE 25.2 MMOL/L (24-32); eCRCL 141 ML/MIN; eGFR > 90 ML/MIN
[2025-06-25 22:32] VITALS: TEMP 98.5
[2025-06-25 22:42] LABS: PRO BRAIN NATRIURETIC PEPTIDE 407 PG/ML (0-125)
== END 2025-06-25 22:34 | disposition left against medical advice (07) ==
LOC: ER 21:13
DX: R07.9 Chest pain, unspecified (principal); E78.5 Hyperlipidemia, unspecified; I25.10 Atherosclerotic heart disease of native coronary artery without angina pectoris; I25.2 Old myocardial infarction; I10 Essential (primary) hypertension; Z86.718 Personal history of other venous thrombosis and embolism; Z86.711 Personal history of pulmonary embolism; Z86.14 Personal history of Methicillin resistant Staphylococcus aureus infection; Z79.01 Long term (current) use of anticoagulants; Z79.82 Long term (current) use of aspirin; Z79.899 Other long term (current) drug therapy
CPT/HCPCS: 36415; 71045; 80048; 83735; 83880; 84484; 85025; 93005; 99285